=== PATIENT | male | born 1990 ===

== ENCOUNTER 2018-09-30 07:20 | Emergency (ER) | payer SELFPAY ==
--- NOTE | 2018-09-30 07:38 | C.PDOC ---
History Of Present Illness 28 year old male presents to ED for evaluation of bilateral ear pain and fullness for the past 2 months. Notes he was evaluated by ENT specialist who cleared wax from his ears and was told he had an infection and fluid behind his ears. He was prescribed steroids but notes he discontinued due to side effects. He also complains of dizziness described as head spinning. Pt states he has history of severe anxiety and usually gets nervous when he feels this way. Otherwise, denies headache, fever, chills, or any other associated symptoms at this time. Time Seen by Provider: 09/30/18 07:24 Chief Complaint (Nursing): ENT Problem History Per: Patient History/Exam Limitations: None Onset/Duration Of Symptoms: Days Current Symptoms Are (Timing): Still Present Past Medical History Reviewed: Historical Data, Nursing Documentation, Vital Signs Vital Signs: Last Vital Signs Temp 98.7 F 09/30/18 07:32 Pulse 87 09/30/18 07:32 Resp 18 09/30/18 07:32 BP 160/93 H 09/30/18 07:32 Pulse Ox 99 09/30/18 07:32 Family History: States: Unknown Family Hx - Social History Hx Alcohol Use: Yes Hx Substance Use: No - Immunization History Hx Tetanus Toxoid Vaccination: No Hx Influenza Vaccination: No Hx Pneumococcal Vaccination: No Review Of Systems Except As Marked, All Systems Reviewed And Found Negative. Constitutional: Negative for: Fever, Chills ENT: Positive for: Ear Pain. Negative for: Nose Congestion, Throat Pain Respiratory: Negative for: Cough Neurological: Positive for: Dizziness. Negative for: Weakness, Numbness, Headache Psych: Positive for: Anxiety Physical Exam - Physical Exam Appears: Non-toxic, No Acute Distress Skin: Normal Color, Warm, Dry Head: Atraumatic, Normacephalic Eye(s): bilateral: Normal Inspection Ear(s): Bilateral: Normal, Other (TM is visible and landmarks in place) Nose: Normal Oral Mucosa: Moist Throat: Normal, No Erythema, No Exudate, No Drooling Neck: Normal ROM, Supple Extremity: Normal ROM Neurological/Psych: Oriented x3, Normal Speech ED Course And Treatment O2 Sat by Pulse Oximetry: 99 (RA) Pulse Ox Interpretation: Normal Progress Note: Pt is being discharged home with instructions to follow up with PMD. Disposition Counseled Patient/Family Regarding: Diagnosis, Need For Followup - Disposition Disposition: HOME/ ROUTINE Disposition Time: 07:36 Condition: STABLE Prescriptions: Loratadine/Pseudoephedrine [Claritin-D 24 Hour Tablet] 1 each PO DAILY #30 tab.er.24h Forms: [facility] (Syriac), General Discharge Instructions - POA Present On Arrival: None - Clinical Impression Clinical Impression: Ear pain - Scribe Statement The provider has reviewed the documentation as recorded by the Scribe Jennifer Matos All medical record entries made by the Bridgeribmarcell were at my direction and personally dictated by me. I have reviewed the chart and agree that the record accurately reflects my personal performance of the history, physical exam, medical decision making, and the department course for this patient. I have also personally directed, reviewed, and agree with the discharge instructions and disposition.
[2018-09-30 07:48] VITALS: TEMP 98.7; O2SAT 99
[2018-09-30 08:02] VITALS: BP 136/89; PULSE 82; RESP 16
== END 2018-09-30 08:02 | disposition home or self-care (01) ==
LOC: C.ER 07:20
DX: H92.03 Otalgia, bilateral (principal)